=== PATIENT | male | born 1955 | race Caucasian/White ===

== ENCOUNTER 2023-06-30 09:32 | Observation (INO) | payer MEDICARE ==
[2023-06-30] MEDS ORDERED: Ativan 2 MG/1 ML VIAL ONE (09:48)
[2023-06-30] MEDS: Ativan 2 MG/1 ML VIAL IV ONE (09:50)
[2023-06-30 10:03] LABS: Absolute Neutrophil Ct (ANC) 4.83 x10^3/uL (1.4-6.9); BASOPHIL % 0.9 % (0.0-0.4); Basophil (Absolute #) 0.09 x10^3/uL (0-0.4); Eosinophil % 4.8 % (0.00-5.0); Eosinophil (Absolute #) 0.48 x10^3/uL (0-0.5); Hematocrit 43.1 % (42-50); Hemoglobin 14.8 g/dL (12.5-18.0); IMMATURE GRAN # 0.05 x10^3u/L (0.00-0.03); IMMATURE GRAN % 0.5 % (0.00-0.4); Lymphocyte (Absolute #) 3.66 x10^3/uL (1.0-4.6); Lymphocytes % 36.3 % (24.0-44.0); Mean Cell Volume 83.7 fL (78-100); Mean Corpuscular Hemoglobin 28.7 pg (26-32); Mean Corpuscular Hgb Concent. 34.3 g/dL (32-36); Mean Platelet Volume 8.6 fL (7.5-11.0); Monocyte (Absolute #) 0.96 x10^3/uL (0.0-1.3); Monocytes % 9.5 % (0.0-12.0); Platelet Count 282 x10^3/uL (150-450); Red Blood Count 5.15 x10^6/uL (4.1-5.6); Red Cell Distribution Width 12.4 % (11.5-14.0); White Blood Count 10.1 x10^3/uL (4.0-10.5)
[2023-06-30 10:19] LABS: ALBUMIN 4.1 g/dL (3.5-5.0); ANION GAP 14.4 MEQ/L (5-15); BILIRUBIN,TOTAL 0.7 mg/dL (0.2-1.3); Calcium 9.2 mg/dL (8.4-10.2); Creatinine 1 0.98 mg/dL (0.66-1.25); EST GLOMERULAR FILTRATION RATE 83.5 ML/MIN; Potassium 4.1 mmol/L (3.5-5.1); Total Protein 7.4 g/dL (6.3-8.2)
[2023-06-30] MEDS: Ativan 1 MG PO ONE (10:36)
[2023-06-30] MEDS ORDERED: Sodium Chloride 0.9% 1000 ML 1,000 ML ONE (10:38)
--- NOTE | 2023-06-30 11:13 | XRAY ---
CLINICAL HISTORY: syncope TECHNIQUE: An axial CT scan of the cervical spine was performed without IV contrast. Sagittal and coronal reconstructed images were obtained. DLP: 1503.16 mGy-cm, CTDI: 74.61 mGy. COMPARISON: None. FINDINGS: Mild straightening of cervical lordosis. Diffuse bone demineralization. Multilevel osteophytes are seen. Degenerative disc disease is seen at multiple levels, mainly affecting C1-C2, C7-T1 and T1-T2 disc space levels. Uncovertebral hypertrophy is noted at the C5-C6 level more at the right side causing right neuroforaminal stenosis. No acute fracture or vertebral listhesis is seen. The visualized right maxillary, ethmoid and sphenoid sinuses show mild mucosal thickening. The visualized soft tissue structures of the neck are normal. The visualized bilateral lung apices are normal. IMPRESSION: 1. No acute fracture or vertebral listhesis. 2. Mild straightening of cervical lordosis possibly due to muscle spasm. 3. Cervical spondylotic changes. 4. Right C5-C6 uncovertebral hypertrophy causing mild to moderate neuroforaminal stenosis. Electronically Signed by: Kimi Ojeda MD. (06/30/2023 11:08:57 EDT)
[2023-06-30] MEDS: Sodium Chloride 0.9% 1000 ML 1,000 ML IV SCH ×2 (11:16→19:06)
--- NOTE | 2023-06-30 11:19 | XRAY ---
CLINICAL HISTORY: syncope TECHNIQUE: An axial CT scan of the head was performed without IV contrast. Sagittal and coronal reconstructed images were obtained. COMPARISON: None. FINDINGS: Brain parenchyma is normal. No acute vascular territory infarct or intracranial hemorrhage. No intra-axial or extra-axial mass or collection. The ventricular system, cortical sulci and basal cisterns are prominent consistent with senile changes. No hydrocephalus. No brain herniation, midline shift or mass effect. The brainstem is normal. The posterior fossa is normal. No acute calvarial fracture is seen. No scalp hematoma. Bilateral maxillary, ethmoid , sphenoid and frontal sinuses show mucosal thickening. IMPRESSION: 1. No acute intracranial abnormality. 2. Senile brain changes. Electronically Signed by: Kimi Ojeda MD. (06/30/2023 11:16:01 EDT)
--- NOTE | 2023-06-30 11:39 | XRAY ---
CLINICAL HISTORY: syncope/fall/left rib inj TECHNIQUE: An axial CT of the chest was performed without IV contrast. Sagittal and coronal reconstructed images were obtained. DLP: 509.48 mGy, CTDI: 13.33 mGy. COMPARISON: None. FINDINGS: The fissural nodule is seen in the superior segment of right lower lobe measuring 0.5 cm. The atelectatic band is seen in the right middle lobe. The remaining lung pizano are clear. No other worrisome nodule or mass. No consolidation or pulmonary edema. No lung contusion or laceration. No interstitial opacities. No pleural effusions. No enlarged axillary, supraclavicular or mediastinal lymph nodes. The esophagus is nondilated. Non-aneurysmal thoracic aorta. Atherosclerotic coronary artery calcifications. The visualized ribs show no fracture. No acute fracture in the visualized thoracic vertebrae, clavicles scapula or proximal humeral bones No cardiomegaly. Pericardial effusion. Mild hiatal hernia. The visualized upper abdomen shows a 2 cm cyst arising from the right kidney, appearing slightly hyperdense, possibly representing a hemorrhagic cyst. Diffuse fatty atrophy of pancreatic parenchyma. No other concerning findings are seen in the visualized upper abdomen on this nondedicated study. A 0.8 cm nodule is seen in the right lobe of the thyroid gland on this nondedicated study. Further evaluation with ultrasound of the thyroid may be needed if clinically indicated. IMPRESSION: 1. No acute fracture in the visualized bones, the lower 3 ribs in each side is incompletely evaluated (not completely included in the field of view). 2. No acute abnormality in the lungs and mediastinum. 3. Right major fissure subcentemetric nodule, follow-up is advised at 12 months in high-risk patients. 4. 0.8 cm right thyroid lobe nodule may be further evaluated with ultrasound if clinically indicated. 5. Small hiatal hernia. 6. A 2 cm cyst arising from the right kidney appearing slightly hyperdense (complex). Sonographic evaluation is advised. Electronically Signed by: Kimi Ojeda MD. (06/30/2023 11:35:52 EDT)
--- NOTE | 2023-06-30 13:35 | ERPHSYRPT ---
- History of Present Illness Time Seen by Provider: 06/30/23 09:35 Source: patient, family Exam Limitations: no limitations Patient Subjective Stated Complaint: Syncope Triage Nursing Assessment: Patient brought into ED per w/c and transferred to b ed with assist of 1. Patient A+O X 3. Patient's skin pink, warm and dry. Patient states he was up to use the restroom when he had a pain/cramp in left leg and all he remembers is his standing over him. Patient states he has head/neck pain to mid left side of back and left knee 11/15. Patient also complains of headache. Patient has purple bruise to left flank area. Patient's stated she heard a loud boom and she ran to check on patient and he was lying on flat on his back with head on pile of towels. states he was unresponsive when she found him. Physician History: 68-year-old male with history of hypertension, hyperlipidemia, diabetes mellitus presented in the ER with complains of syncopal episode. Patient reports he was urinating while standing, suddenly collapsed. heard the thump and gregg to the bathroom and he woke up immediately. No seizure-like activity or postictal phase observed. Patient hit his left chest wall and is also complaining of some headache. Patient has history of chronic headache and neck pain. Denies any focal numbness tingling or weakness. Denies any visual disturbance. Denies any chest pain palpitations or shortness of breath before or after the collapse. Patient is back to his baseline. Reports he felt cramping in the left leg when he woke up. No difficulty movements of lower extremities. No recent fever or chills reported. Timing/Duration: today Deficits: no difficulties Baseline/Normal Cognition: alert oriented x 3 Current Cognition: alert oriented x 3 Baseline Gait: walks w/o assistance Allergies/Adverse Reactions: No Known Drug Allergies Allergy (Unverified 06/30/23 09:35) Home Medications: Amlodipine Besylate 1 tab PO DAILY 06/30/23 [History] Cholecalciferol (Vitamin D3) [Vitamin D3] 1 tab PO DAILY 06/30/23 [History] Metformin HCl 500 mg [Glucophage 500 MG] 2 tab PO HS 06/30/23 [History] Metoprolol Succinate 100 mg [Toprol Xl 100 MG] 1 tab PO DAILY 06/30/23 [History] Ramipril [Altace] 1 tab PO BID 06/30/23 [History] Rosuvastatin Calcium 1 tab PO HS 06/30/23 [History] Tamsulosin HCl 0.4 mg [Flomax 0.4 MG] 1 tab PO HS 06/30/23 [History] Zinc Gluconate [Zinc] 1 tab PO DAILY 06/30/23 [History] hydroCHLOROthiazide [Hydrochlorothiazide] 1 tab PO DAILY 06/30/23 [History] Hx Influenza Vaccination/Date Given: Yes Hx Pneumococcal Vaccination/Date Given: No Immunizations Up to Date: Yes Travel Risk - International Travel Have you traveled outside of the country in past 3 weeks: No - Emerging Infectious Disease Are you exhibiting symptoms associated with any current EIDs: No - Review of Systems Constitutional: Fatigue Eyes: No Symptoms Ears, Nose, & Throat: No Symptoms Respiratory: No Symptoms Cardiac: No Palpitations, No Orthopnea Abdominal/Gastrointestinal: No Symptoms Genitourinary Symptoms: No Symptoms Musculoskeletal: Back Pain, Neck Pain Neurological: Headache Endocrine: No Symptoms Hematologic/Lymphatic: No Symptoms - Past Medical History Pertinent Past Medical History: Yes Cardiac History: High Cholesterol, Hypertension Endocrine Medical History: Diabetes Type II Musculoskeletal History: No Pertinent History GI Medical History: No Pertinent History History: No Pertinent History Psycho-Social History: Anxiety Male Reproductive Disorders: Prostate Cancer - Past Surgical History Past Surgical History: Yes Neuro Surgical History: No Pertinent History Cardiac: No Pertinent History Respiratory: No Pertinent History Musculoskeletal: Orthopedic Surgery Male Surgical History: Other Other Surgical History: Yeyo knee replacement. prostate problems - Social History Smoking Status: Never smoker Exposure to second hand smoke: No Drug Use: none - Nursing Vital Signs Nursing Vital Signs: Initial Vital Signs Pulse Rate 72 06/30/23 09:35 Respiratory Rate 18 06/30/23 09:35 Blood Pressure 156/85 06/30/23 09:35 O2 Sat by Pulse Oximetry 97 06/30/23 09:35 Pain Scale Pain Intensity 8 - [place] Coma Scale Best Eye Response ([place]): (4) open spontaneously Best Verbal Response ([place]): (5) oriented Best Motor Response ([place]): (6) obeys commands [place] Total: 15 - Physical Exam General Appearance: no apparent distress, alert, anxiety Eye Exam: bilateral eye: normal inspection, PERRL, EOMI Ears, Nose, Throat Exam: normal ENT inspection, TMs normal, pharynx normal, moist mucous membranes Neck Exam: normal inspection, supple, other (Mild tenderness bilaterally in the lower neck. C-collar placed pain.) Respiratory: normal breath sounds, chest tenderness (Bruising left posterior chest wall with minimal tenderness.), lungs clear Cardiovascular: regular rate/rhythm, normal heart sounds Gastrointestinal: soft, normal bowel sounds, No tenderness Back Exam: normal range of motion, rash Extremity Exam: normal inspection, normal range of motion Mental Status: alert, oriented x 3, cooperative director of athletics Exam: normal hearing, normal speech, PERRL Coordination/Gait: normal finger to nose, normal cerebellar function Motor/Sensory: no motor deficit, no sensory deficit, no pronator drift, negative Babinski's sign DTR: bicep (R): 2+, bicep (L): 2+, knee (R): 2+, knee (L): 2+ Skin Exam: normal color SpO2 Interpretation: normal SpO2: 97 O2 Delivery: Room Air - Course EKG Interpreted by Me: RATE (73), Sinus Rhythm, NORMAL AXIS, prolonged QT inte rval, Non-specific ST Changes Ordered Tests: Active Orders 24 hr Category Date Time Status Business Continuity Coordinator STAT Care 06/30/23 09:50 Active EKG-ER Only STAT Care 06/30/23 09:49 Active IV Insertion STAT Care 06/30/23 09:49 Active Orthostatic Vital Signs STAT Care 06/30/23 09:50 Active POCT Glucose Check STAT Care 06/30/23 09:50 Active CERVICAL SPINE WO CONTRAST [CT] Stat Exams 06/30/23 09:49 Completed CHEST WITHOUT CONTRAST [CT] Stat Exams 06/30/23 09:49 Completed HEAD WITHOUT CONTRAST [CT] Stat Exams 06/30/23 09:49 Completed KNEE (3 VIEWS) Stat Exams 06/30/23 11:28 Taken CBC W DIFF Stat Lab 06/30/23 09:50 Completed CK-Creatinine Phosphokinase Stat Lab 06/30/23 09:50 Completed CMP Stat Lab 06/30/23 09:50 Completed NT PRO BNPII Stat Lab 06/30/23 09:50 Completed POCT GLUCOSE Stat Lab 06/30/23 09:48 Completed TROPONIN Q4H Lab 06/30/23 09:50 Completed TROPONIN Q4H Lab 06/30/23 14:00 Received TROPONIN Q4H Lab 06/30/23 18:00 Ordered Medication Summary Generic Name Dose Route Start Last Admin Trade Name Chip PRN Reason Stop Dose Admin Sodium Chloride 1,000 mls @ 125 mls/hr 06/30/23 10:00 06/30/23 11:16 Sodium Chloride 0.9% 1000 Ml IV 07/30/23 09:59 125 mls/hr .Q8H HEBER Administration Discontinued Medications Generic Name Dose Route Start Last Admin Trade Name Chip PRN Reason Stop Dose Admin Lorazepam Confirm 06/30/23 09:48 Lorazepam 2 Mg/1 Ml 2 Mg Vial Administered 06/30/23 09:49 Dose 2 mg .ROUTE .STK-MED ONE Lorazepam 1 mg 06/30/23 09:50 06/30/23 10:36 Lorazepam 1 Mg Tablet PO 06/30/23 09:51 Not Given STAT ONE Lorazepam 1 mg 06/30/23 10:14 06/30/23 09:50 Lorazepam 2 Mg/1 Ml 2 Mg Vial IV 06/30/23 10:15 1 mg STAT ONE Administration Lab/Rad Data: Laboratory Result Diagrams 06/30/23 09:50 06/30/23 09:50 Laboratory Results 06/30/23 06/30/23 06/30/23 Range/Units 09:50 09:50 09:50 WBC (4.0-10.5) x10^3/uL RBC (4.1-5.6) x10^6/uL Hgb (12.5-18.0) g/dL Hct (42-50) % MCV (78-100) fL MCH (26-32) pg MCHC (32-36) g/dL RDW (11.5-14.0) % Plt Count (150-450) x10^3/uL MPV (7.5-11.0) fL Gran % (36.0-66.0) % Immature Gran % (Auto) (0.00-0.4) % Nucleat RBC Rel Count (0.00-0.1) % Eos # (Auto) (0-0.5) x10^3/uL Immature Gran # (Auto) (0.00-0.03) x10^3u/L Absolute Lymphs (auto) (1.0-4.6) x10^3/uL Absolute Monos (auto) (0.0-1.3) x10^3/uL Absolute Nucleated RBC (0.00-0.01) x10^3u/L Lymphocytes % (24.0-44.0) % Monocytes % (0.0-12.0) % Eosinophils % (0.00-5.0) % Basophils % (0.0-0.4) % Absolute Granulocytes (1.4-6.9) x10^3/uL Basophils # (0-0.4) x10^3/uL Sodium 136 (135-145) mmol/L Potassium 4.1 (3.5-5.1) mmol/L Chloride 103 (98-107) mmol/L Carbon Dioxide 23 (22-30) mmol/L Anion Gap 14.4 (5-15) MEQ/L BUN 22 H (9-20) mg/dL Creatinine 0.98 (0.66-1.25) mg/dL Estimated GFR 83.5 ML/MIN Glucose 216 H (74-106) mg/dL POC Glucometer (74 to 106) mg/dL Calcium 9.2 (8.4-10.2) mg/dL Total Bilirubin 0.70 (0.2-1.3) mg/dL AST 24 (17-59) U/L ALT 22 (0-50) U/L Alkaline Phosphatase 89 (38-126) U/L Creatine Kinase 66 (55-170) U/L Troponin I < 0.012 (0.000-0.034) ng/mL NT-Pro-B Natriuret Pep 32.7 (<300) pg/mL Serum Total Protein 7.4 (6.3-8.2) g/dL Albumin 4.1 (3.5-5.0) g/dL 06/30/23 06/30/23 Range/Units 09:50 09:48 WBC 10.1 (4.0-10.5) x10^3/uL RBC 5.15 (4.1-5.6) x10^6/uL Hgb 14.8 (12.5-18.0) g/dL Hct 43.1 (42-50) % MCV 83.7 (78-100) fL MCH 28.7 (26-32) pg MCHC 34.3 (32-36) g/dL RDW 12.4 (11.5-14.0) % Plt Count 282 (150-450) x10^3/uL MPV 8.6 (7.5-11.0) fL Gran % 48.0 (36.0-66.0) % Immature Gran % (Auto) 0.5 H (0.00-0.4) % Nucleat RBC Rel Count 0.0 (0.00-0.1) % Eos # (Auto) 0.48 (0-0.5) x10^3/uL Immature Gran # (Auto) 0.05 H (0.00-0.03) x10^3u/L Absolute Lymphs (auto) 3.66 (1.0-4.6) x10^3/uL Absolute Monos (auto) 0.96 (0.0-1.3) x10^3/uL Absolute Nucleated RBC 0.00 (0.00-0.01) x10^3u/L Lymphocytes % 36.3 (24.0-44.0) % Monocytes % 9.5 (0.0-12.0) % Eosinophils % 4.8 (0.00-5.0) % Basophils % 0.9 (0.0-0.4) % Absolute Granulocytes 4.83 (1.4-6.9) x10^3/uL Basophils # 0.09 (0-0.4) x10^3/uL Sodium (135-145) mmol/L Potassium (3.5-5.1) mmol/L Chloride (98-107) mmol/L Carbon Dioxide (22-30) mmol/L Anion Gap (5-15) MEQ/L BUN (9-20) mg/dL Creatinine (0.66-1.25) mg/dL Estimated GFR ML/MIN Glucose (74-106) mg/dL POC Glucometer 208 H (74 to 106) mg/dL Calcium (8.4-10.2) mg/dL Total Bilirubin (0.2-1.3) mg/dL AST (17-59) U/L ALT (0-50) U/L Alkaline Phosphatase (38-126) U/L Creatine Kinase (55-170) U/L Troponin I (0.000-0.034) ng/mL NT-Pro-B Natriuret Pep (<300) pg/mL Serum Total Protein (6.3-8.2) g/dL Albumin (3.5-5.0) g/dL - Progress Progress: improved Progress Note: 06/30/23 14:10 68-year-old is evaluated in the ER for syncopal episode. Patient has no seizure-like activity noticed. At his baseline on presentation. EKG is sinus rhythm with no acute ischemic changes. Negative troponins. Placed in c-collar. CT head and cervical spine are negative for any acute findings. Patient CT chest is negative for acute intrathoracic process. Workup showed white count of 10, fairly unremarkable chemistries. Started on gentle hydration. Do not know the exact cause of his syncopal episode, possible micturition syncope but needs further workup. Discussed with Dr. Bryant, reviewed history, workup and agreed with observation admission. I have discussed the results of workup with patient and family and plan of admission which they understand and agree with it. 06/30/23 14:[address].: Other (Dr. Bryant hospitalist 1400) Will see patient in: hospital (observation) Counseled pt/family regarding: lab results, diagnosis, rad results Medical Desision Making - Discussion of managment Care discussed with:: hospitalist Reviewed:: Test results Agreed on:: Treatment plan, place in obs Will see patient: in hospital - Diagnostic Testing Diagnostic test were ordered, analyzed, and reviewed by me: Yes Radiological Interpretation: Reviewed by me, Teleradiologist Report - Risk of complications The pt has a high risk of morbidity or mortality based on: Decision regarding hospitilization or escalation of hosp level of care - Departure Departure Disposition: Observation Clinical Impression: Syncope and collapse Condition: Stable Critical Care Time: No Referrals: HANNA GUZMAN DO [Primary Care Provider] - Follow up/PCP as directed
--- NOTE | 2023-06-30 14:50 | PCM.HP ---
<MALINDA COLÓN - Last Filed: 06/30/23 15:36> History of Present Illness - Chief Complaint Chief Complaint: Syncope and collapse Date: 06/30/23 History of Present Illness: is a 68 year old male with a pmhx of HTN, DMII, HLD, anxiety, and prostate cancer who presented to ED 06/30/23 following a syncopal episode while urinating. Patient reports that he had a pretty bad "chrystal horse" while walking to the bathroom, and when he went to urinate he "felt funny" with associated nausea and the next thing he knew he was on the floor. His spouse is present during interview and states she heard a crash and went to investigate and found him on the floor. The patient did recover in less than 5 seconds. No seizure-like activity or postictal phase observed. Patient hit his left chest wall, left knee, and endorses some headache. He denies any focal numbness tingling or weakness. Denies any chest pain, dizziness, visual changes, palpitations or shortness of breath before or after the collapse. Patient is back to his baseline during this interview. He does report occasional episodes of dizziness with positional changes. He is on multiple medications for HTN. In ED, patient was mildly hypertensive, otherwise vitals were stable. EKG is sinus rhythm with no ST elevations/deviations, acute ischemic changes. CT head and cervical spine are negative for any acute findings. Patient CT chest is negative for acute intrathoracic process. Of note, there is a right major fissure subcentemetric nodule with advisement for follow up in 12 months. Laboratory findings unremarkable. Patient given fluids in ED. Admission for evaluation of syncopal episode. - Review of Systems Constitutional: No Symptoms Eyes: No Symptoms Ears, Nose, & Throat: No Symptoms Respiratory: No Symptoms Cardiac: No Symptoms Abdominal/Gastrointestinal: No Symptoms Genitourinary Symptoms: No Symptoms Musculoskeletal: Neck Pain (chronic), Joint Pain (left knee) Skin: No Symptoms Neurological: Headache Psychological: No Symptoms Endocrine: No Symptoms Hematologic/Lymphatic: No Symptoms Immunological/Allergic: No Symptoms Medications & Allergies Home Medications: Home Medication List Amlodipine Besylate 1 tab PO DAILY 06/30/23 [History Confirmed 06/30/23] Cholecalciferol (Vitamin D3) [Vitamin D3] 1 tab PO DAILY 06/30/23 [History Confirmed 06/30/23] Metformin HCl 500 mg [Glucophage 500 MG] 2 tab PO HS 06/30/23 [History Confirmed 06/30/23] Metoprolol Succinate [Toprol Xl] 1 tab PO DAILY 06/30/23 [History Confirmed 06/30/23] Ramipril [Altace] 1 tab PO BID 06/30/23 [History Confirmed 06/30/23] Rosuvastatin Calcium 1 tab PO HS 06/30/23 [History Confirmed 06/30/23] Tamsulosin HCl 0.4 mg [Flomax 0.4 MG] 1 tab PO HS 06/30/23 [History Confirmed 06/30/23] Zinc Gluconate [Zinc] 1 tab PO DAILY 06/30/23 [History Confirmed 06/30/23] hydroCHLOROthiazide [Hydrochlorothiazide] 1 tab PO DAILY 06/30/23 [History Confirmed 06/30/23] Allergies/Adverse Reactions: Allergies Allergy/AdvReac Type Severity Reaction Status Date / Time No Known Drug Allergies Allergy Unverified 06/30/23 09:35 - Past Medical History Past Medical History: Yes Cardiac History: High Cholesterol, Hypertension Endocrine Medical History: Diabetes Type II Musculoskelatal History: No Pertinent History GI Medical History: No Pertinent History History: No Pertinent History Pyscho-Social History: Anxiety Male Reproductive Disorders: Prostate Cancer - Past Surgical History Past Surgical History: Yes Neuro Surgical History: No Pertinent History Cardiac History: No Pertinent History Respiratory Surgery: No Pertinent History Musculskeletal Surgical Hx: Orthopedic Surgery Male Surgical History: Other Other Surgical History: Yeyo knee replacement. prostate problems - Social History Smoking Status: Never smoker Exposure to second hand smoke: No Alcohol: Occasionally Drug Use: none - Social Determinants of Health Will the patient participate in the screening: Yes Do you worry about a steady place to live?: No Do you have any problems with any of the following?: No known problems In the past 12 months,have you had to go without utilities?: No Have you or anyone in your house had to go without enough: No Transportation Issues: No Has anyone in your support network made you feel unsafe?: No - Physical Exam Vital Signs: Vital Signs - 24 hr Pulse Resp BP Pulse Ox 06/30/23 14:13 97 03/24/24 09:35 72 18 156/85 97 General Appearance: no apparent distress Neurologic Exam: alert, oriented x 3, cooperative Eye Exam: PERRL/EOMI Ears, Nose, Throat Exam: normal ENT inspection Neck Exam: normal inspection Respiratory Exam: normal breath sounds, lungs clear Cardiovascular Exam: regular rate/rhythm, normal heart sounds Rectal Exam: deferred Back Exam: normal inspection Extremity Exam: normal inspection Skin Exam: normal color Results - Labs Lab/Micro Results: Lab Results-Last 24 Hours 06/30/23 06/30/23 06/30/23 Range/Units 09:48 09:50 09:50 WBC 10.1 (4.0-10.5) x10^3/uL RBC 5.15 (4.1-5.6) x10^6/uL Hgb 14.8 (12.5-18.0) g/dL Hct 43.1 (42-50) % MCV 83.7 (78-100) fL MCH 28.7 (26-32) pg MCHC 34.3 (32-36) g/dL RDW 12.4 (11.5-14.0) % Plt Count 282 (150-450) x10^3/uL MPV 8.6 (7.5-11.0) fL Gran % 48.0 (36.0-66.0) % Immature Gran % (Auto) 0.5 H (0.00-0.4) % Nucleat RBC Rel Count 0.0 (0.00-0.1) % Eos # (Auto) 0.48 (0-0.5) x10^3/uL Immature Gran # (Auto) 0.05 H (0.00-0.03) x10^3u/L Absolute Lymphs (auto) 3.66 (1.0-4.6) x10^3/uL Absolute Monos (auto) 0.96 (0.0-1.3) x10^3/uL Absolute Nucleated RBC 0.00 (0.00-0.01) x10^3u/L Lymphocytes % 36.3 (24.0-44.0) % Monocytes % 9.5 (0.0-12.0) % Eosinophils % 4.8 (0.00-5.0) % Basophils % 0.9 (0.0-0.4) % Absolute Granulocytes 4.83 (1.4-6.9) x10^3/uL Basophils # 0.09 (0-0.4) x10^3/uL Sodium 136 (135-145) mmol/L Potassium 4.1 (3.5-5.1) mmol/L Chloride 103 (98-107) mmol/L Carbon Dioxide 23 (22-30) mmol/L Anion Gap 14.4 (5-15) MEQ/L BUN 22 H (9-20) mg/dL Creatinine 0.98 (0.66-1.25) mg/dL Estimated GFR 83.5 ML/MIN Glucose 216 H (74-106) mg/dL POC Glucometer 208 H (74 to 106) mg/dL Calcium 9.2 (8.4-10.2) mg/dL Total Bilirubin 0.70 (0.2-1.3) mg/dL AST 24 (17-59) U/L ALT 22 (0-50) U/L Alkaline Phosphatase 89 (38-126) U/L Creatine Kinase 66 (55-170) U/L Troponin I (0.000-0.034) ng/mL NT-Pro-B Natriuret Pep (<300) pg/mL Serum Total Protein 7.4 (6.3-8.2) g/dL Albumin 4.1 (3.5-5.0) g/dL 06/30/23 06/30/23 06/30/23 Range/Units 09:50 09:50 14:00 WBC (4.0-10.5) x10^3/uL RBC (4.1-5.6) x10^6/uL Hgb (12.5-18.0) g/dL Hct (42-50) % MCV (78-100) fL MCH (26-32) pg MCHC (32-36) g/dL RDW (11.5-14.0) % Plt Count (150-450) x10^3/uL MPV (7.5-11.0) fL Gran % (36.0-66.0) % Immature Gran % (Auto) (0.00-0.4) % Nucleat RBC Rel Count (0.00-0.1) % Eos # (Auto) (0-0.5) x10^3/uL Immature Gran # (Auto) (0.00-0.03) x10^3u/L Absolute Lymphs (auto) (1.0-4.6) x10^3/uL Absolute Monos (auto) (0.0-1.3) x10^3/uL Absolute Nucleated RBC (0.00-0.01) x10^3u/L Lymphocytes % (24.0-44.0) % Monocytes % (0.0-12.0) % Eosinophils % (0.00-5.0) % Basophils % (0.0-0.4) % Absolute Granulocytes (1.4-6.9) x10^3/uL Basophils # (0-0.4) x10^3/uL Sodium (135-145) mmol/L Potassium (3.5-5.1) mmol/L Chloride (98-107) mmol/L Carbon Dioxide (22-30) mmol/L Anion Gap (5-15) MEQ/L BUN (9-20) mg/dL Creatinine (0.66-1.25) mg/dL Estimated GFR ML/MIN Glucose (74-106) mg/dL POC Glucometer (74 to 106) mg/dL Calcium (8.4-10.2) mg/dL Total Bilirubin (0.2-1.3) mg/dL AST (17-59) U/L ALT (0-50) U/L Alkaline Phosphatase (38-126) U/L Creatine Kinase (55-170) U/L Troponin I < 0.012 < 0.012 (0.000-0.034) ng/mL NT-Pro-B Natriuret Pep 32.7 (<300) pg/mL Serum Total Protein (6.3-8.2) g/dL Albumin (3.5-5.0) g/dL Accuchecks Date 06/30/23 Date 06/30/23 Time 10:01 Time 09:48 - Radiology Impressions Radiology Exams & Impressions: Radiology Procedures Category Date Time Status CERVICAL SPINE WO CONTRAST [CT] Stat Exams 06/30/23 09:49 Completed CHEST WITHOUT CONTRAST [CT] Stat Exams 06/30/23 09:49 Completed HEAD WITHOUT CONTRAST [CT] Stat Exams 06/30/23 09:49 Completed KNEE (3 VIEWS) Stat Exams 06/30/23 11:28 Taken Assessment/Plan (1) Syncope and collapse Current Visit: Yes Status: Acute Assessment & Plan: -?micturition syncope -Medications reviewed, on multiple BP meds, will monitor HR on Tele, Hold HCTZ for now -gentle hydration started in ED will continue -UA, CBC, CMP -CT head/thoracic spine with no acute findings -Echo/carotid -Orthostatic vitals -med review -PT/OT consult Code(s): R55 - SYNCOPE AND COLLAPSE (2) Diabetes mellitus Current Visit: Yes Status: Acute Assessment & Plan: -SSI -Hold metformin -ADA diet -A1c -accuchecks ACHS Code(s): E11.9 - TYPE 2 DIABETES MELLITUS WITHOUT COMPLICATIONS (3) Hypertension Current Visit: Yes Status: Acute Assessment & Plan: -Stable, will hold HCTZ for now, continue other home meds Code(s): I10 - ESSENTIAL (PRIMARY) HYPERTENSION (4) Hyperlipidemia Current Visit: Yes Status: Acute Assessment & Plan: -continue statin Code(s): E78.5 - HYPERLIPIDEMIA, UNSPECIFIED (5) Left knee pain Current Visit: Yes Status: Acute Assessment & Plan: -Secondary to fall after syncopal episode -Left knee xray pending -Pain control Code(s): M25.562 - PAIN IN LEFT KNEE <CANDELARIO RODRIGUEZ - Last Filed: 06/30/23 17:55> History of Present Illness - Chief Complaint History of Present Illness: is a 68 year old male. - Physical Exam Vital Signs: Vital Signs - 24 hr Temp Pulse Resp BP BP Pulse Ox 06/30/23 17:16 95 06/30/23 16:00 98.6 F 89 23 154/87 95 06/30/23 15:00 92 L 06/30/23 14:18 97.3 F 92 H 16 174/80 93 L 06/30/23 14:13 97 06/30/23 09:35 72 18 156/85 97 Results - Labs Lab/Micro Results: Lab Results-Last 24 Hours 06/30/23 06/30/23 06/30/23 Range/Units 09:48 09:50 09:50 WBC 10.1 (4.0-10.5) x10^3/uL RBC 5.15 (4.1-5.6) x10^6/uL Hgb 14.8 (12.5-18.0) g/dL Hct 43.1 (42-50) % MCV 83.7 (78-100) fL MCH 28.7 (26-32) pg MCHC 34.3 (32-36) g/dL RDW 12.4 (11.5-14.0) % Plt Count 282 (150-450) x10^3/uL MPV 8.6 (7.5-11.0) fL Gran % 48.0 (36.0-66.0) % Immature Gran % (Auto) 0.5 H (0.00-0.4) % Nucleat RBC Rel Count 0.0 (0.00-0.1) % Eos # (Auto) 0.48 (0-0.5) x10^3/uL Immature Gran # (Auto) 0.05 H (0.00-0.03) x10^3u/L Absolute Lymphs (auto) 3.66 (1.0-4.6) x10^3/uL Absolute Monos (auto) 0.96 (0.0-1.3) x10^3/uL Absolute Nucleated RBC 0.00 (0.00-0.01) x10^3u/L Lymphocytes % 36.3 (24.0-44.0) % Monocytes % 9.5 (0.0-12.0) % Eosinophils % 4.8 (0.00-5.0) % Basophils % 0.9 (0.0-0.4) % Absolute Granulocytes 4.83 (1.4-6.9) x10^3/uL Basophils # 0.09 (0-0.4) x10^3/uL Sodium 136 (135-145) mmol/L Potassium 4.1 (3.5-5.1) mmol/L Chloride 103 (98-107) mmol/L Carbon Dioxide 23 (22-30) mmol/L Anion Gap 14.4 (5-15) MEQ/L BUN 22 H (9-20) mg/dL Creatinine 0.98 (0.66-1.25) mg/dL Estimated GFR 83.5 ML/MIN Glucose 216 H (74-106) mg/dL POC Glucometer 208 H (74 to 106) mg/dL Calcium 9.2 (8.4-10.2) mg/dL Total Bilirubin 0.70 (0.2-1.3) mg/dL AST 24 (17-59) U/L ALT 22 (0-50) U/L Alkaline Phosphatase 89 (38-126) U/L Creatine Kinase 66 (55-170) U/L Troponin I (0.000-0.034) ng/mL NT-Pro-B Natriuret Pep (<300) pg/mL Serum Total Protein 7.4 (6.3-8.2) g/dL Albumin 4.1 (3.5-5.0) g/dL TSH 3rd Generation (0.47-4.68) mIU/L Urine Color (Yellow) Urine Appearance (Clear) Urine pH (4.6-8.0) Ur Specific [place] (1.005-1.030) Urine Protein (Negative) Urine Glucose (UA) (Negative) mg/dL Urine Ketones (Negative) Urine Blood (Negative) Urine Nitrite (Negative) Urine Bilirubin (Negative) Urine Urobilinogen (0.2) mg/dL Ur Leukocyte Esterase (Negative) U Hyaline Cast (Auto) (0-2) /LPF Urine Microscopic RBC (0-5) /HPF Urine Microscopic WBC (0-5) /HPF Ur Epithelial Cells (None Seen) /HPF Urine Bacteria (None Seen) /HPF Urine Culture Reflexed (NO) 06/30/23 06/30/23 06/30/23 Range/Units 09:50 09:50 14:00 WBC (4.0-10.5) x10^3/uL RBC (4.1-5.6) x10^6/uL Hgb (12.5-18.0) g/dL Hct (42-50) % MCV (78-100) fL MCH (26-32) pg MCHC (32-36) g/dL RDW (11.5-14.0) % Plt Count (150-450) x10^3/uL MPV (7.5-11.0) fL Gran % (36.0-66.0) % Immature Gran % (Auto) (0.00-0.4) % Nucleat RBC Rel Count (0.00-0.1) % Eos # (Auto) (0-0.5) x10^3/uL Immature Gran # (Auto) (0.00-0.03) x10^3u/L Absolute Lymphs (auto) (1.0-4.6) x10^3/uL Absolute Monos (auto) (0.0-1.3) x10^3/uL Absolute Nucleated RBC (0.00-0.01) x10^3u/L Lymphocytes % (24.0-44.0) % Monocytes % (0.0-12.0) % Eosinophils % (0.00-5.0) % Basophils % (0.0-0.4) % Absolute Granulocytes (1.4-6.9) x10^3/uL Basophils # (0-0.4) x10^3/uL Sodium (135-145) mmol/L Potassium (3.5-5.1) mmol/L Chloride (98-107) mmol/L Carbon Dioxide (22-30) mmol/L Anion Gap (5-15) MEQ/L BUN (9-20) mg/dL Creatinine (0.66-1.25) mg/dL Estimated GFR ML/MIN Glucose (74-106) mg/dL POC Glucometer (74 to 106) mg/dL Calcium (8.4-10.2) mg/dL Total Bilirubin (0.2-1.3) mg/dL AST (17-59) U/L ALT (0-50) U/L Alkaline Phosphatase (38-126) U/L Creatine Kinase (55-170) U/L Troponin I < 0.012 < 0.012 (0.000-0.034) ng/mL NT-Pro-B Natriuret Pep 32.7 (<300) pg/mL Serum Total Protein (6.3-8.2) g/dL Albumin (3.5-5.0) g/dL TSH 3rd Generation (0.47-4.68) mIU/L Urine Color (Yellow) Urine Appearance (Clear) Urine pH (4.6-8.0) Ur Specific [place] (1.005-1.030) Urine Protein (Negative) Urine Glucose (UA) (Negative) mg/dL Urine Ketones (Negative) Urine Blood (Negative) Urine Nitrite (Negative) Urine Bilirubin (Negative) Urine Urobilinogen (0.2) mg/dL Ur Leukocyte Esterase (Negative) U Hyaline Cast (Auto) (0-2) /LPF Urine Microscopic RBC (0-5) /HPF Urine Microscopic WBC (0-5) /HPF Ur Epithelial Cells (None Seen) /HPF Urine Bacteria (None Seen) /HPF Urine Culture Reflexed (NO) 06/30/23 06/30/23 06/30/23 Range/Units 14:00 15:58 16:50 WBC (4.0-10.5) x10^3/uL RBC (4.1-5.6) x10^6/uL Hgb (12.5-18.0) g/dL Hct (42-50) % MCV (78-100) fL MCH (26-32) pg MCHC (32-36) g/dL RDW (11.5-14.0) % Plt Count (150-450) x10^3/uL MPV (7.5-11.0) fL Gran % (36.0-66.0) % Immature Gran % (Auto) (0.00-0.4) % Nucleat RBC Rel Count (0.00-0.1) % Eos # (Auto) (0-0.5) x10^3/uL Immature Gran # (Auto) (0.00-0.03) x10^3u/L Absolute Lymphs (auto) (1.0-4.6) x10^3/uL Absolute Monos (auto) (0.0-1.3) x10^3/uL Absolute Nucleated RBC (0.00-0.01) x10^3u/L Lymphocytes % (24.0-44.0) % Monocytes % (0.0-12.0) % Eosinophils % (0.00-5.0) % Basophils % (0.0-0.4) % Absolute Granulocytes (1.4-6.9) x10^3/uL Basophils # (0-0.4) x10^3/uL Sodium (135-145) mmol/L Potassium (3.5-5.1) mmol/L Chloride (98-107) mmol/L Carbon Dioxide (22-30) mmol/L Anion Gap (5-15) MEQ/L BUN (9-20) mg/dL Creatinine (0.66-1.25) mg/dL Estimated GFR ML/MIN Glucose (74-106) mg/dL POC Glucometer 229 H (74 to 106) mg/dL Calcium (8.4-10.2) mg/dL Total Bilirubin (0.2-1.3) mg/dL AST (17-59) U/L ALT (0-50) U/L Alkaline Phosphatase (38-126) U/L Creatine Kinase (55-170) U/L Troponin I (0.000-0.034) ng/mL NT-Pro-B Natriuret Pep (<300) pg/mL Serum Total Protein (6.3-8.2) g/dL Albumin (3.5-5.0) g/dL TSH 3rd Generation 1.030 (0.47-4.68) mIU/L Urine Color Yellow (Yellow) Urine Appearance Clear (Clear) Urine pH 6.5 (4.6-8.0) Ur Specific [place] 1.015 (1.005-1.030) Urine Protein Negative (Negative) Urine Glucose (UA) 500 A (Negative) mg/dL Urine Ketones Negative (Negative) Urine Blood Negative (Negative) Urine Nitrite Negative (Negative) Urine Bilirubin Negative (Negative) Urine Urobilinogen 1.0 A (0.2) mg/dL Ur Leukocyte Esterase Negative (Negative) U Hyaline Cast (Auto) NONE SEEN (0-2) /LPF Urine Microscopic RBC 0-2 (0-5) /HPF Urine Microscopic WBC 0-2 (0-5) /HPF Ur Epithelial Cells None Seen (None Seen) /HPF Urine Bacteria None Seen (None Seen) /HPF Urine Culture Reflexed NO (NO) Accuchecks Date 06/30/23 Date 06/30/23 Date 06/30/23 Time 17:28 Time 10:01 Time 09:48 - Radiology Impressions Radiology Exams & Impressions: Radiology Procedures Category Date Time Status CAROTID BILATERAL [US] Routine Exams 07/01/23 08:00 Ordered CERVICAL SPINE WO CONTRAST [CT] Stat Exams 06/30/23 09:49 Completed CHEST WITHOUT CONTRAST [CT] Stat Exams 06/30/23 09:49 Completed ECHO W/2D AND DOPPLER [US] Routine Exams 07/01/23 08:00 Ordered HEAD WITHOUT CONTRAST [CT] Stat Exams 06/30/23 09:49 Completed KNEE (3 VIEWS) Stat Exams 06/30/23 11:28 Taken WRIST (MIN 3 VIEWS) Urgent Exams 06/30/23 17:09 Ordered - Other Procedures and Tests Respiratory Therapy 06/30/23 15:00 EKG REPEAT IN AM ANA LILIA Encounter - ANA LILIA Encounter Attestation ANA LILIA Encounter Attestation: "IhwespersonallysshaqandexaminedNANETA KISER anddadaiscussed pertinent aspects of their care with Malinda Gracie agree with the history, physical exam (any modifications based on my personal exam will be noted below), assessment, and plan as outlined in original note. Please see immediately below for my summary of findings and additional assessment and plan along with any meaningful corrections/explanations to the Subjective/Objective portions of the ANA LILIA note will be noted." My portion of the encounter took place via telemedicine. -Based on patient's account, it was likely a vasovagal event triggered by a severe leg cramp. However given his risk factors, it is reasonable to monitor him on telemetry and check echo and carotid doppler as patient denies having those, at least recently. Also complaining of left knee pain since fall/syncope, unable to bear weight due to pain. Knee x ray pending.
[2023-06-30] MEDS ORDERED: Zofran 4 MG/2 ML VIAL IV PRN (15:00)
[2023-06-30 16:07] LABS: Appearance Clear (Clear); Bacteria None Seen /HPF (None Seen); Bilirubin Negative (Negative); Blood Negative (Negative); Epithelial Cells None Seen /HPF (None Seen); Glucose, Urine 500 mg/dL (Negative); Hyaline Casts NONE SEEN /LPF (0-2); Ketones Negative (Negative); Leukocyte Esterase Negative (Negative); Nitrite Negative (Negative); Ph 6.5 (4.6-8.0); Protein,Urine Dip Negative (Negative); RBC 0-2 /HPF (0-5); Specific Gravity 1.015 (1.005-1.030); WBC 0-2 /HPF (0-5)
[2023-06-30 16:08] LABS: ADD URINE CULTURE? NO (NO)
--- NOTE | 2023-06-30 19:05 | XRAY ---
Indication: Pain following fall. Comparison: None 3 view left knee demonstrates osteopenia and total knee arthroplasty with intact prosthesis and tiny heterotopic ossifications. Minimal posterior vascular calcifications. No other bony, articular, or soft tissue abnormalities.
--- NOTE | 2023-06-30 19:09 | XRAY ---
Indication: Pain following fall. Comparison: None 3 view right wrist demonstrates osteopenia, moderate/advanced 1st metacarpal multangular scaphoid degenerative changes with tiny heterotopic ossifications, and radiocarpal joint space narrowing. No other bony, articular, or soft tissue abnormalities.
[2023-06-30] MEDS: TYLENOL 325 MG PO PRN (19:51)
[2023-06-30] MEDS ORDERED: ZOCOR 20MG ONE (21:05)
[2023-06-30] MEDS ORDERED: Flomax 0.4 MG PO SCH (22:00)
[2023-06-30] MEDS ORDERED: NON-FORMULARY ITEM (Rosuvastatin Calcium [Rosuvastatin Calcium] 20 MG Tablet) PO SCH (22:00)
[2023-06-30] MEDS: NON-FORMULARY ITEM (Ramipril [Altace] 10 MG Capsule) PO SCH (22:02)
[2023-06-30] MEDS: ZOCOR 20MG PO SCH (22:04)
[2023-06-30] MEDS: Zestril 20 MG PO SCH (22:04)
[2023-06-30] MEDS: HUMALOG SQ PRN (22:05)
[2023-07-01 05:15] LABS: Hematocrit 40.7 % (42-50); Hemoglobin 13.4 g/dL (12.5-18.0); Mean Cell Volume 85.5 fL (78-100); Mean Corpuscular Hemoglobin 28.2 pg (26-32); Mean Corpuscular Hgb Concent. 32.9 g/dL (32-36); Mean Platelet Volume 8.5 fL (7.5-11.0); Platelet Count 268 x10^3/uL (150-450); Red Blood Count 4.76 x10^6/uL (4.1-5.6); Red Cell Distribution Width 12.6 % (11.5-14.0); White Blood Count 9.2 x10^3/uL (4.0-10.5)
[2023-07-01 05:29] LABS: ALBUMIN 3.5 g/dL (3.5-5.0); ALKALINE PHOSPHATASE 78 U/L (38-126); ANION GAP 10.5 MEQ/L (5-15); BLOOD UREA NITROGEN 16 mg/dL (9-20); CHLORIDE 107 mmol/L (98-107); Calcium 8.4 mg/dL (8.4-10.2); Carbon Dioxide 23 mmol/L (22-30); Cholesterol 87 mg/dL (50-200); Creatinine 1 0.83 mg/dL (0.66-1.25); EST GLOMERULAR FILTRATION RATE 94.7 ML/MIN; Glucose 188 mg/dL (74-106); HDL CHOLESTEROL 34 mg/dL (40-60); SGOT/AST 21 U/L (17-59); SGPT/ALT 19 U/L (0-50); SODIUM 137 mmol/L (135-145); TRIGLYCERIDE 114 mg/dL (30-150); Total Protein 6.5 g/dL (6.3-8.2)
[2023-07-01] MEDS: Zinc Gluconate 50 MG PO SCH (09:48)
[2023-07-01] MEDS: Toprol Xl 100 MG PO SCH (09:48)
[2023-07-01] MEDS: NORVASC 5 MG PO SCH (09:48)
[2023-07-01] MEDS: VITAMIN D PO SCH (09:48)
[2023-07-01] MEDS ORDERED: VITAMIN D PO SCH (10:00)
[2023-07-01] MEDS ORDERED: NON-FORMULARY ITEM (Amlodipine Besylate [Amlodipine Besylate] 10 MG Tablet) PO SCH (10:00)
[2023-07-01 11:31] VITALS: BP 148/77; PULSE 66; TEMP 97.4; O2SAT 97
[2023-07-01 12:11] VITALS: RESP 23
--- NOTE | 2023-07-01 12:21 | XRAY ---
Indication: Syncope. Two-dimensional sonogram and color Doppler imaging carotid arteries of the neck performed. Comparison: None Examination right carotid circulation demonstrates minimal eccentric calcified plaquing carotid bulb extending into the origin/proximal internal carotid and external carotid arteries. Widely patent common carotid artery. PSV CCA is 72 cm/s. PSV ICA is 100 cm/s. ICA/CCA ratio is 1.4. Normal antegrade vertebral artery flow. Examination left carotid circulation widely patent common carotid artery with distal tortuosity. Minimal heterogeneous plaquing carotid bulb extending into origin/proximal internal carotid artery. Widely patent external carotid artery. PSV CCA is 94 cm/s. PSV ICA is 108 cm/s. ICA/CCA ratio is 1.1. Normal antegrade vertebral artery flow. Impression: Minimal arteriosclerotic plaquing bilaterally as detailed. Velocity measurements and ratios negative for hemodynamically significant flow-limiting stenosis.
--- NOTE | 2023-07-01 13:51 | XRAY ---
Indication: Right renal nodule on recent CT chest. Two-dimensional renal sonogram performed. Comparison: None Both kidneys are normal reniform shape and demonstrates normal color perfusion. Right kidney measures 11.6 x 6.1 x 5.47 m and left measures 10.2 x 5.7 x 5.8 cm. Right mid kidney demonstrates 1.8 x 1.9 x 1.9 cm exophytic cyst. No other focal solid/cystic renal mass or hydronephrosis. Corticomedullary differentiation preserved. Normally distended urinary bladder is grossly unremarkable. Normal left ureteral jet. Right ureteral jet not seen within the allotted exam time. Prevoid bladder volume is 131 cc. Postvoid is 43 cc. Impression: Right renal cyst corresponding to CT finding. Urinary bladder postvoid residual. Remaining renal sonogram is negative.
--- NOTE | 2023-07-01 14:29 | PCM.DS ---
Discharge Summary Date of Admission: 06/30/23 14:16 Date of Discharge: 07/01/23 Admitting Physician: CANDELARIO RODRIGUEZ MD Primary Care Provider: HANNA GUZMAN DO Allergies Allergies No Known Drug Allergies Allergy (Unverified 06/30/23 09:35) Hospital Summary - Hospital Course Hospital Course: is a 68 year old male with a pmhx of HTN, DMII, HLD, anxiety, with elevated PSA. He presented to ED 06/30/23 following a syncopal episode while urinating. Patient reports that he had a pretty bad "chrystal horse" while walking to the bathroom, and when he went to urinate he "felt funny" with associated nausea and the next thing he knew he was on the floor. His spouse is present during interview and states she heard a crash and went to investigate and found him on the floor. The patient did recover in less than 5 seconds. No seizure-like activity or postictal phase observed. Patient hit his left chest wall, left knee, and endorses some headache. He denies any focal numbness tingling or weakness. Denies any chest pain, dizziness, visual changes, palpitations or shortness of breath before or after the collapse. Patient is back to his baseline during this interview. He does report occasional episodes of dizziness with positional changes. He is on multiple medications for HTN. In ED, patient was mildly hypertensive, otherwise vitals were stable. EKG is sinus rhythm with no ST elevations/deviations, acute ischemic changes. CT head and cervical spine are negative for any acute findings. Patient CT chest is negative for acute intrathoracic process. Of note, there is a right major fissure subcentemetric nodule with advisement for follow up in 12 months. Laboratory findings unremarkable. Patient given fluids in ED. Pt is feeling better today and walked well with PT w/o any concerns. Dsicussed CT, echo, carotid US, and kidney US findings. He erik lneed OP f/u and appointments made. He denies CP, SOB, abd. pain, N/V/D. . - Vitals & Intake/Output Vital Signs: Vital Signs Temperature 97.4 F 07/01/23 11:30 Pulse Rate 66 07/01/23 11:30 Respiratory Rate 23 07/01/23 12:00 Blood Pressure 148/77 07/01/23 11:30 O2 Sat by Pulse Oximetry 97 07/01/23 11:30 Intake & Output: Intake & Output 06/29/23 06/30/23 07/01/23 07/02/23 11:59 11:59 11:59 11:59 Intake Total 2662 450 Output Total 725 Balance 1937 450 Weight 106.5 kg 107.6 kg - Lab Result Diagrams: 07/01/23 05:00 07/01/23 05:00 Lab Results-Last 24 Hrs: Lab Results-Last 24 Hours 06/30/23 06/30/23 06/30/23 Range/Units 14:00 14:00 15:58 WBC (4.0-10.5) x10^3/uL RBC (4.1-5.6) x10^6/uL Hgb (12.5-18.0) g/dL Hct (42-50) % MCV (78-100) fL MCH (26-32) pg MCHC (32-36) g/dL RDW (11.5-14.0) % Plt Count (150-450) x10^3/uL MPV (7.5-11.0) fL Sodium (135-145) mmol/L Potassium (3.5-5.1) mmol/L Chloride (98-107) mmol/L Carbon Dioxide (22-30) mmol/L Anion Gap (5-15) MEQ/L BUN (9-20) mg/dL Creatinine (0.66-1.25) mg/dL Estimated GFR ML/MIN Glucose (74-106) mg/dL POC Glucometer (74 to 106) mg/dL Calcium (8.4-10.2) mg/dL Total Bilirubin (0.2-1.3) mg/dL AST (17-59) U/L ALT (0-50) U/L Alkaline Phosphatase (38-126) U/L Troponin I < 0.012 (0.000-0.034) ng/mL Serum Total Protein (6.3-8.2) g/dL Albumin (3.5-5.0) g/dL Triglycerides (30-150) mg/dL Cholesterol (50-200) mg/dL LDL Cholesterol HDL Cholesterol (40-60) mg/dL Heart Disease Risk Ratio TSH 3rd Generation 1.030 (0.47-4.68) mIU/L Urine Color Yellow (Yellow) Urine Appearance Clear (Clear) Urine pH 6.5 (4.6-8.0) Ur Specific Barry 1.015 (1.005-1.030) Urine Protein Negative (Negative) Urine Glucose (UA) 500 A (Negative) mg/dL Urine Ketones Negative (Negative) Urine Blood Negative (Negative) Urine Nitrite Negative (Negative) Urine Bilirubin Negative (Negative) Urine Urobilinogen 1.0 A (0.2) mg/dL Ur Leukocyte Esterase Negative (Negative) U Hyaline Cast (Auto) NONE SEEN (0-2) /LPF Urine Microscopic RBC 0-2 (0-5) /HPF Urine Microscopic WBC 0-2 (0-5) /HPF Ur Epithelial Cells None Seen (None Seen) /HPF Urine Bacteria None Seen (None Seen) /HPF Urine Culture Reflexed NO (NO) 06/30/23 06/30/23 06/30/23 Range/Units 16:50 18:30 21:21 WBC (4.0-10.5) x10^3/uL RBC (4.1-5.6) x10^6/uL Hgb (12.5-18.0) g/dL Hct (42-50) % MCV (78-100) fL MCH (26-32) pg MCHC (32-36) g/dL RDW (11.5-14.0) % Plt Count (150-450) x10^3/uL MPV (7.5-11.0) fL Sodium (135-145) mmol/L Potassium (3.5-5.1) mmol/L Chloride (98-107) mmol/L Carbon Dioxide (22-30) mmol/L Anion Gap (5-15) MEQ/L BUN (9-20) mg/dL Creatinine (0.66-1.25) mg/dL Estimated GFR ML/MIN Glucose (74-106) mg/dL POC Glucometer 229 H 285 H (74 to 106) mg/dL Calcium (8.4-10.2) mg/dL Total Bilirubin (0.2-1.3) mg/dL AST (17-59) U/L ALT (0-50) U/L Alkaline Phosphatase (38-126) U/L Troponin I < 0.012 (0.000-0.034) ng/mL Serum Total Protein (6.3-8.2) g/dL Albumin (3.5-5.0) g/dL Triglycerides (30-150) mg/dL Cholesterol (50-200) mg/dL LDL Cholesterol HDL Cholesterol (40-60) mg/dL Heart Disease Risk Ratio TSH 3rd Generation (0.47-4.68) mIU/L Urine Color (Yellow) Urine Appearance (Clear) Urine pH (4.6-8.0) Ur Specific Barry (1.005-1.030) Urine Protein (Negative) Urine Glucose (UA) (Negative) mg/dL Urine Ketones (Negative) Urine Blood (Negative) Urine Nitrite (Negative) Urine Bilirubin (Negative) Urine Urobilinogen (0.2) mg/dL Ur Leukocyte Esterase (Negative) U Hyaline Cast (Auto) (0-2) /LPF Urine Microscopic RBC (0-5) /HPF Urine Microscopic WBC (0-5) /HPF Ur Epithelial Cells (None Seen) /HPF Urine Bacteria (None Seen) /HPF Urine Culture Reflexed (NO) 06/30/23 07/01/23 07/01/23 Range/Units 21:21 05:00 05:00 WBC 9.2 (4.0-10.5) x10^3/uL RBC 4.76 (4.1-5.6) x10^6/uL Hgb 13.4 (12.5-18.0) g/dL Hct 40.7 L (42-50) % MCV 85.5 (78-100) fL MCH 28.2 (26-32) pg MCHC 32.9 (32-36) g/dL RDW 12.6 (11.5-14.0) % Plt Count 268 (150-450) x10^3/uL MPV 8.5 (7.5-11.0) fL Sodium 137 (135-145) mmol/L Potassium 4.0 (3.5-5.1) mmol/L Chloride 107 (98-107) mmol/L Carbon Dioxide 23 (22-30) mmol/L Anion Gap 10.5 (5-15) MEQ/L BUN 16 (9-20) mg/dL Creatinine 0.83 (0.66-1.25) mg/dL Estimated GFR 94.7 ML/MIN Glucose 188 H (74-106) mg/dL POC Glucometer 285 H (74 to 106) mg/dL Calcium 8.4 (8.4-10.2) mg/dL Total Bilirubin 0.50 (0.2-1.3) mg/dL AST 21 (17-59) U/L ALT 19 (0-50) U/L Alkaline Phosphatase 78 (38-126) U/L Troponin I (0.000-0.034) ng/mL Serum Total Protein 6.5 (6.3-8.2) g/dL Albumin 3.5 (3.5-5.0) g/dL Triglycerides 114 (30-150) mg/dL Cholesterol 87 (50-200) mg/dL LDL Cholesterol Pending HDL Cholesterol 34 L (40-60) mg/dL Heart Disease Risk Ratio 3.0 TSH 3rd Generation (0.47-4.68) mIU/L Urine Color (Yellow) Urine Appearance (Clear) Urine pH (4.6-8.0) Ur Specific Barry (1.005-1.030) Urine Protein (Negative) Urine Glucose (UA) (Negative) mg/dL Urine Ketones (Negative) Urine Blood (Negative) Urine Nitrite (Negative) Urine Bilirubin (Negative) Urine Urobilinogen (0.2) mg/dL Ur Leukocyte Esterase (Negative) U Hyaline Cast (Auto) (0-2) /LPF Urine Microscopic RBC (0-5) /HPF Urine Microscopic WBC (0-5) /HPF Ur Epithelial Cells (None Seen) /HPF Urine Bacteria (None Seen) /HPF Urine Culture Reflexed (NO) 07/01/23 07/01/23 Range/Units 07:09 11:18 WBC (4.0-10.5) x10^3/uL RBC (4.1-5.6) x10^6/uL Hgb (12.5-18.0) g/dL Hct (42-50) % MCV (78-100) fL MCH (26-32) pg MCHC (32-36) g/dL RDW (11.5-14.0) % Plt Count (150-450) x10^3/uL MPV (7.5-11.0) fL Sodium (135-145) mmol/L Potassium (3.5-5.1) mmol/L Chloride (98-107) mmol/L Carbon Dioxide (22-30) mmol/L Anion Gap (5-15) MEQ/L BUN (9-20) mg/dL Creatinine (0.66-1.25) mg/dL Estimated GFR ML/MIN Glucose (74-106) mg/dL POC Glucometer 190 H 219 H (74 to 106) mg/dL Calcium (8.4-10.2) mg/dL Total Bilirubin (0.2-1.3) mg/dL AST (17-59) U/L ALT (0-50) U/L Alkaline Phosphatase (38-126) U/L Troponin I (0.000-0.034) ng/mL Serum Total Protein (6.3-8.2) g/dL Albumin (3.5-5.0) g/dL Triglycerides (30-150) mg/dL Cholesterol (50-200) mg/dL LDL Cholesterol HDL Cholesterol (40-60) mg/dL Heart Disease Risk Ratio TSH 3rd Generation (0.47-4.68) mIU/L Urine Color (Yellow) Urine Appearance (Clear) Urine pH (4.6-8.0) Ur Specific Barry (1.005-1.030) Urine Protein (Negative) Urine Glucose (UA) (Negative) mg/dL Urine Ketones (Negative) Urine Blood (Negative) Urine Nitrite (Negative) Urine Bilirubin (Negative) Urine Urobilinogen (0.2) mg/dL Ur Leukocyte Esterase (Negative) U Hyaline Cast (Auto) (0-2) /LPF Urine Microscopic RBC (0-5) /HPF Urine Microscopic WBC (0-5) /HPF Ur Epithelial Cells (None Seen) /HPF Urine Bacteria (None Seen) /HPF Urine Culture Reflexed (NO) Micro Results-Entire Visit: Accuchecks Date 07/01/23 Date 07/01/23 Date 06/30/23 Time 11:30 Time 07:22 Time 17:28 - Radiology Exams Ordered Rad Exams-Entire Visit: Radiology Procedures Category Date Time Status CAROTID BILATERAL [US] Routine Exams 07/01/23 08:00 Completed CERVICAL SPINE WO CONTRAST [CT] Stat Exams 06/30/23 09:49 Completed CHEST WITHOUT CONTRAST [CT] Stat Exams 06/30/23 09:49 Completed ECHO W/2D AND DOPPLER [US] Routine Exams 07/01/23 08:00 Taken HEAD WITHOUT CONTRAST [CT] Stat Exams 06/30/23 09:49 Completed KIDNEY [US] Urgent Exams 07/01/23 12:31 Completed KNEE (3 VIEWS) Stat Exams 06/30/23 11:28 Completed WRIST (MIN 3 VIEWS) Urgent Exams 06/30/23 17:09 Completed - Procedures and Test Procedures and Tests throughout Hospitalization: Therapy Orders & Screens 06/30/23 15:00 PT Eval & Treat ( Order) ONCE Reason for Eval:: syncope Diagnosis: Syncope and collapse EKG REPEAT IN AM Comment: Diagnosis: Syncope and collapse OT Eval and Treat ( Order) ONCE Comment: Physician Instructions: Reason For Exam: Diagnosis: Syncope and collapse 06/30/23 15:14 OT Screen per Nursing Assess ONCE Comment: Protocol Order Physician Instructions: Greater than 3 points order OT Admission Screening Reason For Exam: Triggered on Admission Diagnosis: Syncope and collapse Open Wound/Cellutlitis/Pressure Ulcers: No Acute Fx/ORIF/Change in wt bearing status: Yes Severe MUSCULOSKELETAL pain: No ADL Dysfunction: No Acute CVA w/Hemiparesis/Hemiplegia: No Decreased Functional Mobility/Strength: Yes Sprain/Strain: Yes Acute Post-op Mobility Dysfunction: No Total Points: 9 PT Screen per Nursing Assess ONCE Comment: Protocol Order Physician Instructions: Greater than 3 points order PT Admission Screenin Reason For Exam: Triggered on Admission Diagnosis: Syncope and collapse Open Wound/Cellutlitis/Pressure Ulcers: No Acute Fx/ORIF/Change in wt bearing status: Yes Severe MUSCULOSKELETAL pain: No ADL Dysfunction: No Acute CVA w/Hemiparesis/Hemiplegia: No Decreased Functional Mobility/Strength: Yes Sprain/Strain: Yes Acute Post-op Mobility Dysfunction: No Total Points: 9 Final Diagnosis/Problem List - Final Discharge Diagnosis/Problem (1) Syncope and collapse Current Visit: Yes Status: Acute Assessment & Plan: - head CT negative - Echo: EF 52%- will need cardiology OP f/u- denies CP - Carotid duplex-Impression: Minimal arteriosclerotic plaquing bilaterally as detailed. Velocity measurements and ratios negative for hemodynamically significant flow-limiting stenosis Code(s): R55 - SYNCOPE AND COLLAPSE (2) Diabetes mellitus Current Visit: Yes Status: Acute Assessment & Plan: -SSI -Hold metformin -ADA diet -A1c 7.04 03/18/23- uncontrolled - A1C analyzer down- unable to do A1C at this time. -accuchecks ACHS Code(s): E11.9 - TYPE 2 DIABETES MELLITUS WITHOUT COMPLICATIONS (3) Hyperlipidemia Current Visit: Yes Status: Acute Assessment & Plan: -continue statin Code(s): E78.5 - HYPERLIPIDEMIA, UNSPECIFIED (4) Hypertension Current Visit: Yes Status: Acute Assessment & Plan: -Stable, will hold HCTZ for now, continue other home meds Code(s): I10 - ESSENTIAL (PRIMARY) HYPERTENSION (5) Left knee pain Current Visit: Yes Status: Acute Assessment & Plan: - Left knee XR: 3 view left knee demonstrates osteopenia and total knee arthroplasty with intact prosthesis and tiny heterotopic ossifications. Minimal posterior vascular calcifications. No other bony, articular, or soft tissue abnormalities. - Did well with PT no need for further eval at this time. - tylenol for pain - [place] Code(s): M25.562 - PAIN IN LEFT KNEE (6) Cyst of right kidney Current Visit: Yes Status: Acute Assessment & Plan: - as seen on chest CT - US right kidney 06/30 Both kidneys are normal reniform shape and demonstrates normal color perfusion. Right kidney measures 11.6 x 6.1 x 5.47 m and left measures 10.2 x 5.7 x 5.8 cm. Right mid kidney demonstrates 1.8 x 1.9 x 1.9 cm exophytic cyst. No other focal solid/cystic renal mass or hydronephrosis. Corticomedullary differentiation preserved. Normally distended urinary bladder is grossly unremarkable. Normal left ureteral jet. Right ureteral jet not seen within the allotted exam time. Prevoid bladder volume is 131 cc. Postvoid is 43 cc. Impression: Right renal cyst corresponding to CT finding. Urinary bladder postvoid residual. Remaining renal sonogram is negative. - OP f/u appointment made with urology Code(s): N28.1 - CYST OF KIDNEY, ACQUIRED - Discharge Discharge Date: 07/01/23 Disposition: Home, Self-Care Condition: Stable Prescriptions: Continue Zinc Gluconate [Zinc] 1 tab PO DAILY hydroCHLOROthiazide [Hydrochlorothiazide] 1 tab PO DAILY Tamsulosin HCl 0.4 mg [Flomax 0.4 MG] 1 tab PO HS Metformin HCl 500 mg [Glucophage 500 MG] 2 tab PO HS Rosuvastatin Calcium 1 tab PO HS Ramipril [Altace] 1 tab PO BID Cholecalciferol (Vitamin D3) [Vitamin D3] 1 tab PO DAILY Amlodipine Besylate 1 tab PO DAILY Metoprolol Succinate [Toprol Xl] 1 tab PO DAILY Follow up with: JACOB SANCHEZ [COURTESY STAFF] - 10/02/23 2:15 pm ALDO JEAN FNP [ALLIED HEALTH PROFESSION STAFF] - 07/05/23 10:00 am JEREMIAH TOMLIN NP [NON-STAFF PHY W/O PRIVILEGES] - 07/04/23 1:00 pm
== END 2023-07-01 15:36 | disposition home or self-care (01) ==
LOC: ED 09:32 → MED SURG 14:16
PROVIDERS: ADMIT Internal Medicine; ATTEND Internal Medicine
DX: R55 Syncope and collapse (principal); E11.9 Type 2 diabetes mellitus without complications; E78.5 Hyperlipidemia, unspecified; I10 Essential (primary) hypertension; M25.562 Pain in left knee; N28.1 Cyst of kidney, acquired; F41.9 Anxiety disorder, unspecified; Z79.899 Other long term (current) drug therapy; Z20.828 Contact with and (suspected) exposure to other viral communicable diseases; Z85.46 Personal history of malignant neoplasm of prostate
CPT/HCPCS: 36000; 36415; 70450; 71250; 72125; 73110; 73562; 76770; 80053; 80061; 81001; 82550; 82947; 83036; 83721; 83880; 84443; 84484; 85025; 85027; 93005; 93041; 93268; 93306; 93880; 94762; 96374; 97162; 99285; G0378; Q3014; J1817; J2060; A9270-GY

== ENCOUNTER 2023-10-02 06:46 | Day surgery (SDC) | payer MEDICARE ==
[2023-10-02] MEDS ORDERED: BUPIVACAINE 0.5% VIAL IJ ONE (06:47)
[2023-10-02] MEDS ORDERED: Decadron 4 MG INJ IV ONE (06:47)
[2023-10-02] MEDS ORDERED: DIPRIVAN 200 MG/20 ML IV ONE (08:27)
[2023-10-02] MEDS ORDERED: Lactated Ringers 1,000 ML IV ONE (08:51)
--- NOTE | 2023-10-02 09:43 | XRAY ---
Indication: Left C2-C4 MBB. Intraoperative fluoroscopy provided for 27 seconds. 3 digital spot image submitted for interpretation demonstrates posterior needle tips projecting over the expected left C2-C4 nerve roots. Correlate with intraoperative findings/report.
--- NOTE | 2023-10-02 13:24 | XRAY ---
27 seconds of fluoroscopy was used in surgery for a left C2-C4 MBB.
== END 2023-10-02 09:00 | disposition home or self-care (01) ==
LOC: SDC-PAIN 06:46
PROVIDERS: ATTEND Psychiatry & Neurology Pain Medicine
DX: M47.812 Spondylosis without myelopathy or radiculopathy, cervical region (principal); E11.9 Type 2 diabetes mellitus without complications
CPT/HCPCS: 64490; 64491; 72040; 77002; 82947; J1100; J2704

== ENCOUNTER 2023-10-23 06:44 | Day surgery (SDC) | payer MEDICARE ==
[2023-10-23] MEDS ORDERED: BUPIVACAINE 0.5% VIAL IJ ONE (06:45)
[2023-10-23] MEDS ORDERED: Decadron 4 MG INJ IV ONE (06:45)
[2023-10-23] MEDS ORDERED: LIDOCAINE HCL 1% 50 MG/5 ML VL PF IJ ONE (06:45)
[2023-10-23] MEDS ORDERED: DIPRIVAN 200 MG/20 ML IV ONE (08:24)
[2023-10-23] MEDS ORDERED: Lactated Ringers 1,000 ML IV ONE (08:29)
--- NOTE | 2023-10-23 10:22 | XRAY ---
Indication: Left C2-C4 RFA. Intraoperative fluoroscopy provided for 31 seconds. 3 digital spot images submitted for interpretation demonstrates posterior needle tips projecting over the expected left C2-C4 nerve roots. Correlate with intraoperative findings/report.
--- NOTE | 2023-10-23 10:35 | XRAY ---
31 seconds of fluoroscopy was used in surgery for a left C2-C4 RFA.
== END 2023-10-23 09:00 | disposition home or self-care (01) ==
LOC: SDC-PAIN 06:44
PROVIDERS: ATTEND Psychiatry & Neurology Pain Medicine
DX: M47.812 Spondylosis without myelopathy or radiculopathy, cervical region (principal); E11.9 Type 2 diabetes mellitus without complications
CPT/HCPCS: 64633; 64634; 72040; 77002; 82947; J1100; J2001; J2704

== ENCOUNTER 2024-12-24 06:19 | Emergency (ER) | payer MEDICARE ==
[2024-12-24 06:24] VITALS: TEMP 97.4
--- NOTE | 2024-12-24 06:39 | ERPHSYRPT ---
<HEIDY NICHOLE - Last Filed: 12/24/24 06:50> - History of Present Illness Time Seen by Provider: 12/24/24 06:20 Historian: patient, family Exam Limitations: no limitations Patient Subjective Stated Complaint: chest pain Triage Nursing Assessment: Pt ambulated into ER without diff, spouse at bedside. Pt c/o midsternal chest pain that began around 0230 this morning that woke him up from sleep. Pt describes the pain as "sharp". Pt also had this same chest pain 2 days ago that lasted for several hours but finally went away. Lungs clear, heart tones reg, no edema noted. Physician History: This is a 69-year-old white male patient who arrives via private vehicle accompanied by his spouse and is a patient of Dr. Guzman. Patient is a piece, has history of diabetes, hyperlipidemia, hypertension and prostate issues. He has never been diagnosed with coronary artery disease. He states that on Saturday, prior to this evaluation he had similar send to the of substernal, central, sharp nonradiating chest pain. Eventually it went away and returned at 230 this morning. It was significant enough to wake him up and has been persistent. He did not take any aspirin prior to arrival. Timing/Duration: other (2:30 in the morning today) Activities at Onset: sleep Quality: sharpness, stabbing Location: substernal, central Chest Pain Radiation: no radiation Severity of Pain-Max: moderate Severity of Pain-Current: moderate Modifying Factors: Improves With: nothing Associated Symptoms: nausea, No shortness of breath Prior Chest Pain/Cardiac Workup: no prior chest pain, no prior cardiac workup Nitro Today/Relief: no nitro taken today Aspirin Treatment Today: 81 mg x 4, provided by ED Allergies/Adverse Reactions: No Known Drug Allergies Allergy (Unverified 12/24/24 06:36) Home Medications: Amlodipine Besylate 1 tab PO DAILY 06/30/23 [History] Cholecalciferol (Vitamin D3) [Vitamin D3] 1 tab PO DAILY 06/30/23 [History] Metformin HCl 500 mg [Glucophage 500 MG] 2 tab PO HS 06/30/23 [History] Metoprolol Succinate [Toprol Xl] 1 tab PO DAILY 06/30/23 [History] Rosuvastatin Calcium 1 tab PO HS 06/30/23 [History] Zinc Gluconate [Zinc] 1 tab PO DAILY 06/30/23 [History] hydroCHLOROthiazide [Hydrochlorothiazide] 1 tab PO DAILY 06/30/23 [History] ramipriL [Altace] 1 tab PO BID 06/30/23 [History] Meclizine HCl 25 mg [Antivert 25 mg] 1 tab PO TID PRN PRN 12/24/24 [History] Metformin HCl 500 mg [Glucophage 500 MG] 1 tab PO DAILY 12/24/24 [History] Multivit-Minerals/Folic Acid [Multi Vitamin Jelly] 1 tab PO DAILY 12/24/24 [History] Hx Tetanus, Diphtheria Vaccination/Date Given: (unsure) Hx Influenza Vaccination/Date Given: Yes Hx Pneumococcal Vaccination/Date Given: No Travel Risk - International Travel Have you traveled outside of the country in past 3 weeks: No - Emerging Infectious Disease Are you exhibiting symptoms associated with any current EIDs: No - Review of Systems Constitutional: No Symptoms Eyes: No Symptoms Ears, Nose, & Throat: No Symptoms Respiratory: No Symptoms Cardiac: Chest Pain Abdominal/Gastrointestinal: No Symptoms Genitourinary Symptoms: No Symptoms Musculoskeletal: No Symptoms Skin: No Symptoms Neurological: No Symptoms Psychological: No Symptoms Endocrine: No Symptoms Hematologic/Lymphatic: No Symptoms Immunological/Allergic: No Symptoms All Other Systems: Reviewed and Negative - Past Medical History Pertinent Past Medical History: Yes Neurological History: Other Cardiac History: Angina, High Cholesterol, Hypertension Respiratory History: No Pertinent History Endocrine Medical History: Diabetes Type II Musculoskeletal History: No Pertinent History GI Medical History: No Pertinent History History: No Pertinent History Psycho-Social History: Anxiety Male Reproductive Disorders: No Pertinent History Other Medical History: Headaches at base of head into neck (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 prostate problems - Social History Smoking Status: Never smoker Exposure to second hand smoke: No Drug Use: none - Social Determinants of Health Will the patient participate in the screening: Yes Do you worry about a steady place to live?: No Do you have any problems with any of the following?: No known problems In the past 12 months,have you had to go without utilities?: No Transportation Issues: No Has anyone in your support network made you feel unsafe?: No Have you or anyone in your house had to go w/o enough food: No - Physical Exam General Appearance: mild distress, alert Eye Exam: PERRL/EOMI, eyes nml inspection Ears, Nose, Throat Exam: normal ENT inspection, moist mucous membranes Neck Exam: normal inspection, non-tender, supple, full range of motion Respiratory Exam: normal breath sounds, chest tenderness, lungs clear, airway intact, No respiratory distress Cardiovascular Exam: regular rate/rhythm, normal heart sounds, normal peripheral pulses Gastrointestinal/Abdomen Exam: soft, normal bowel sounds, No tenderness Rectal Exam: not done Back Exam: normal inspection, normal range of motion, No CVA tenderness, No vertebral tenderness Extremity Exam: normal inspection, normal range of motion, pelvis stable Neurologic Exam: alert, oriented x 3, cooperative, job training specialist II-XII nml as tested, nml cerebellar function, nml station & gait, sensation nml Skin Exam: normal color, warm, dry Lymphatic Exam: No adenopathy SpO2 Interpretation: normal SpO2: 96 O2 Delivery: Room Air - Course Nursing assessment & vital signs reviewed: Yes EKG Interpreted by Me: RATE (76), Sinus Rhythm, NORMAL AXIS, NORMAL INTERVALS, NORMAL QRS, Other (QTc is 456. No acute ischemic changes on today's twelve-lead EKG) - Progress Progress Note: 12/24/24 06:58 My medical decision making and the assignment of moderate complexity of this patient's medical issue today is based on review of the patient's past medical history, reviewed patient's medication list, reviewed patient drug allergy list, history of present illness and physical findings on examination. The workup in this patient includes placement of intravenous line, twelve-lead EKG, provide the patient with 4 baby aspirin, CBC, CMP, magnesium level, D-dimer, PT/INR and troponin level Differential diagnosis includes but is not limited to myocardial infarction, electrolyte abnormalities, pulmonary embolus, arrhythmia I am transferring care to Dr. Moreno at shift change. He will follow-up with pending lab and workup results and make final disposition. Medical Desision Making - Independent Historian Additional History obtained from: Spouse - Departure Departure Disposition: Home Clinical Impression: Chest pain Condition: Good Critical Care Time: No Referrals: HANNA GUZMAN DO [Primary Care Provider, [facility]] - Follow up/PCP as directed Instructions: Chest Pain (DC) Additional Instructions: Return for any recurrent pain or concerns Care was discussed with your PCP office. They can arrange an outpatient stress test. They are going to follow-up your white blood cell count. Rest today. <JAMSHID MORENO - Last Filed: 12/24/24 10:18> - Nursing Vital Signs Nursing Vital Signs: Initial Vital Signs Pulse Rate 74 12/24/24 06:19 Respiratory Rate 14 12/24/24 06:19 Blood Pressure 137/55 12/24/24 06:19 O2 Sat by Pulse Oximetry 94 L 12/24/24 06:19 Pain Scale Pain Intensity 5 Ordered Tests: Active Orders 24 hr Category Date Time Status Shopper'S Aide STAT Care 12/24/24 06:40 Active EKG-ER Only STAT Care 12/24/24 06:40 Active EKG-ER Only STAT Care 12/24/24 07:37 Completed IV Insertion STAT Care 12/24/24 06:40 Active Pulse Oximetry (ED) STAT Care 12/24/24 06:40 Active CHEST 1 VIEW (PORTABLE) Stat Exams 12/24/24 06:39 Completed CBC W DIFF Stat Lab 12/24/24 06:30 Completed CMP Stat Lab 12/24/24 06:30 Completed D-DIMER QUANTITATIVE Stat Lab 12/24/24 06:30 Completed MAGNESIUM Stat Lab 12/24/24 06:30 Completed NT PRO BNPII Stat Lab 12/24/24 06:30 Completed PROTIME WITH INR Stat Lab 12/24/24 06:30 Completed TROPONIN Q4H Lab 12/24/24 06:30 Completed TROPONIN Q4H Lab 12/24/24 09:10 Completed TROPONIN Q4H Lab 12/24/24 14:45 Ordered Medication Summary Discontinued Medications Generic Name Dose Route Start Last Admin Trade Name Freq PRN Reason Stop Dose Admin Aspirin 324 mg 12/24/24 06:40 12/24/24 06:50 Aspirin 81 Mg Tab.Chew PO 12/24/24 06:41 324 mg STAT ONE Administration Morphine Sulfate 4 mg 12/24/24 07:18 12/24/24 07:27 Morphine Sulfate 4 Mg/Ml Injection IV 12/24/24 07:19 4 mg STAT ONE Administration Ondansetron HCl 4 mg 12/24/24 06:40 12/24/24 06:50 Ondansetron Hcl 4 Mg/2 Ml Vial IV 12/24/24 06:41 4 mg STAT ONE Administration Lab/Rad Data: Laboratory Result Diagrams 12/24/24 06:30 12/24/24 06:30 Laboratory Results 12/24/24 12/24/24 12/24/24 Range/Units 09:10 06:30 06:30 WBC (4.23-9.07) x10^3/uL RBC (4.63-6.08) x10^6/uL Hgb (13.7-17.5) g/dL Hct (40.1-51.0) % MCV (79.0-92.2) fL MCH (25.7-32.2) pg MCHC (32.3-36.5) g/dL RDW (11.6-14.4) % Plt Count (163-337) x10^3/uL MPV (9.4-12.4) fL Gran % (34.0-67.9) % Immature Gran % (Auto) (0.001-0.429) % Nucleat RBC Rel Count (0.00-0.2) % Eos # (Auto) (0.04-0.54) x10^3/uL Immature Gran # (Auto) (0.001-0.031) x10^3u/L Absolute Lymphs (auto) (1.32-3.57) x10^3/uL Absolute Monos (auto) (0.30-0.82) x10^3/uL Absolute Nucleated RBC (0.00-0.012) x10^3u/L Lymphocytes % (21.8-53.1) % Monocytes % (5.3-12.2) % Eosinophils % (0.8-7.0) % Basophils % (0.2-1.2) % Absolute Granulocytes (1.78-5.38) x10^3/uL Basophils # (0.01-0.08) x10^3/uL PT 9.7 (9.4-12.5) SECONDS INR 0.88 (0.8-3.0) D-Dimer 0.33 (0.0-0.50) mg/L Sodium (135-145) mmol/L Potassium (3.5-5.1) mmol/L Chloride (98-107) mmol/L Carbon Dioxide (22-30) mmol/L Anion Gap (5-15) MEQ/L BUN (9-20) mg/dL Creatinine (0.66-1.25) mg/dL Estimated GFR ML/MIN Glucose (74-106) mg/dL Calcium (8.4-10.2) mg/dL Magnesium (1.6-2.3) mg/dL Total Bilirubin (0.2-1.3) mg/dL AST (17-59) U/L ALT (0-50) U/L Alkaline Phosphatase (38-126) U/L Troponin I < 0.012 < 0.012 (0.000-0.033) ng/mL NT-Pro-B Natriuret Pep (<300) pg/mL Serum Total Protein (6.3-8.2) g/dL Albumin (3.5-5.0) g/dL 12/24/24 12/24/24 Range/Units 06:30 06:30 WBC 15.8 H (4.23-9.07) x10^3/uL RBC 4.65 (4.63-6.08) x10^6/uL Hgb 13.3 L (13.7-17.5) g/dL Hct 40.1 (40.1-51.0) % MCV 86.2 (79.0-92.2) fL MCH 28.6 (25.7-32.2) pg MCHC 33.2 (32.3-36.5) g/dL RDW 13.2 (11.6-14.4) % Plt Count 277 (163-337) x10^3/uL MPV 8.7 L (9.4-12.4) fL Gran % 57.8 (34.0-67.9) % Immature Gran % (Auto) 0.4 (0.001-0.429) % Nucleat RBC Rel Count 0.0 (0.00-0.2) % Eos # (Auto) 0.59 H (0.04-0.54) x10^3/uL Immature Gran # (Auto) 0.06 H (0.001-0.031) x10^3u/L Absolute Lymphs (auto) 4.66 H (1.32-3.57) x10^3/uL Absolute Monos (auto) 1.28 H (0.30-0.82) x10^3/uL Absolute Nucleated RBC 0.00 (0.00-0.012) x10^3u/L Lymphocytes % 29.4 (21.8-53.1) % Monocytes % 8.1 (5.3-12.2) % Eosinophils % 3.7 (0.8-7.0) % Basophils % 0.6 (0.2-1.2) % Absolute Granulocytes 9.14 H (1.78-5.38) x10^3/uL Basophils # 0.10 H (0.01-0.08) x10^3/uL PT (9.4-12.5) SECONDS INR (0.8-3.0) D-Dimer (0.0-0.50) mg/L Sodium 138 (135-145) mmol/L Potassium 4.0 (3.5-5.1) mmol/L Chloride 105 (98-107) mmol/L Carbon Dioxide 24 (22-30) mmol/L Anion Gap 13.7 (5-15) MEQ/L BUN 20 (9-20) mg/dL Creatinine 0.84 (0.66-1.25) mg/dL Estimated GFR 93.8 ML/MIN Glucose 184 H (74-106) mg/dL Calcium 9.3 (8.4-10.2) mg/dL Magnesium 1.7 (1.6-2.3) mg/dL Total Bilirubin 0.40 (0.2-1.3) mg/dL AST 23 (17-59) U/L ALT 17 (0-50) U/L Alkaline Phosphatase 81 (38-126) U/L Troponin I (0.000-0.033) ng/mL NT-Pro-B Natriuret Pep 144 (<300) pg/mL Serum Total Protein 6.7 (6.3-8.2) g/dL Albumin 4.2 (3.5-5.0) g/dL - Progress Progress: improved Air Movement: good Progress Note: 12/24/24 08:12 Saw the patient in follow-up.His initial EKG was unremarkable.He is pain-free after the morphine from the prior provider. Cardiac workup and D-dimer were unremarkable. An elevated white blood cell count of 15,000. He has had no cough or fever. As he is asymptomatic to get a second EKG that was also normal sinus rhythm with no ST or T wave abnormality. His chest x-ray appears to show some old scarring. He has had no cough or symptoms of infection.Plan to observe him for repeat troponin. If he remains asymptomatic and this is normal we will refer for outpatient workup. 12/24/24 08:51 Procedures: [id number] RAD/CHEST 1 VIEW (PORTABLE) CLINICAL HISTORY: Chest pain COMPARISON: chest X-ray. TECHNIQUE: An X-ray image of the chest was obtained in the AP projection. FINDINGS: Pulmonary Parenchyma: There is a stable appearance of the right basal atelectatic band. This is an expiratory study, causing crowding of the bronchovascular markings. There is no evidence of consolidation, collapse, or focal opacities. No pulmonary nodules are identified. There is no evidence of pleural effusion or pleural thickening. Heart and Mediastinum: The heart size and shape are normal. There is no mediastinal widening or masses. No hilar or mediastinal lymphadenopathy is seen. Bony Thorax: There is mild thoracic scoliosis convex to the right side, which could be positional. The bony thorax appears intact without fractures or deformities. Soft Tissues: The soft tissues overlying the chest wall are unremarkable. IMPRESSION: There is no evidence of consolidation, collapse, or focal opacities. Chest x-ray was unremarkable. Remains pain-free. No etiology for white count. Second troponin was obtained which showed 12/24/24 10:17 Patient was reexamined. The second troponin was normal. He has been asymptomatic for significant period of time. He has not had exertional symptoms. His states she believes it is related to fatty foods but patient does not have any abdominal pain. He is comfortable with outpatient discharge. Okay I will Dr. Guzman office and she was out for discussed with provider taking calls that she is can arrange a stress test for him and a follow-up of his elevated white count. Completely asymptomatic and he agreed to return for any recurrent symptoms or concerns Discussed with Dr.: Downey (Dr. Guzman out. Discussed with provider in office. Arranging stress test and follow-upWhite count) - Departure Departure Disposition: Home Critical Care Time: No
[2024-12-24] MEDS ORDERED: Zofran 4 MG/2 ML VIAL ONE (06:47)
[2024-12-24] MEDS ORDERED: BABY ASPIRIN 81 MG CHEW ONE (06:48)
[2024-12-24] MEDS: Zofran 4 MG/2 ML VIAL IV ONE (06:50)
[2024-12-24] MEDS: BABY ASPIRIN 81 MG CHEW PO ONE (06:50)
[2024-12-24 06:56] LABS: BASOPHIL % 0.6 % (0.2-1.2); Basophil (Absolute #) 0.10 x10^3/uL (0.01-0.08); Eosinophil (Absolute #) 0.59 x10^3/uL (0.04-0.54); Hematocrit 40.1 % (40.1-51.0); Hemoglobin 13.3 g/dL (13.7-17.5); IMMATURE GRAN # 0.06 x10^3u/L (0.001-0.031); IMMATURE GRAN % 0.4 % (0.001-0.429); Lymphocyte (Absolute #) 4.66 x10^3/uL (1.32-3.57); Mean Corpuscular Hemoglobin 28.6 pg (25.7-32.2); Mean Corpuscular Hgb Concent. 33.2 g/dL (32.3-36.5); Monocyte (Absolute #) 1.28 x10^3/uL (0.30-0.82); NUCLEATED RBC # 0.00 x10^3u/L (0.00-0.012); NUCLEATED RBC % 0.0 % (0.00-0.2); Platelet Count 277 x10^3/uL (163-337); Red Blood Count 4.65 x10^6/uL (4.63-6.08); White Blood Count 15.8 x10^3/uL (4.23-9.07)
[2024-12-24 07:12] LABS: INR 0.88 (0.8-3.0); PROTIME 9.7 SECONDS (9.4-12.5)
[2024-12-24 07:21] LABS: Calcium 9.3 mg/dL (8.4-10.2); Carbon Dioxide 24.0 mmol/L (22-30); Creatinine 1 0.84 mg/dL (0.66-1.25); EST GLOMERULAR FILTRATION RATE 93.8 ML/MIN; Glucose 184.0 mg/dL (74-106); NT PRO BNPII 144.0 pg/mL (<300); Potassium 4.0 mmol/L (3.5-5.1); SGOT/AST 23.0 U/L (17-59); SGPT/ALT 17.0 U/L (0-50); Total Protein 6.7 g/dL (6.3-8.2)
[2024-12-24] MEDS ORDERED: MORPHINE SULFATE 4 MG INJ ONE (07:26)
[2024-12-24] MEDS: MORPHINE SULFATE 4 MG INJ IV ONE (07:27)
--- NOTE | 2024-12-24 08:46 | XRAY ---
CLINICAL HISTORY: Chest pain COMPARISON: chest X-ray. TECHNIQUE: An X-ray image of the chest was obtained in the AP projection. FINDINGS: Pulmonary Parenchyma: There is a stable appearance of the right basal atelectatic band. This is an expiratory study, causing crowding of the bronchovascular markings. There is no evidence of consolidation, collapse, or focal opacities. No pulmonary nodules are identified. There is no evidence of pleural effusion or pleural thickening. Heart and Mediastinum: The heart size and shape are normal. There is no mediastinal widening or masses. No hilar or mediastinal lymphadenopathy is seen. Bony Thorax: There is mild thoracic scoliosis convex to the right side, which could be positional. The bony thorax appears intact without fractures or deformities. Soft Tissues: The soft tissues overlying the chest wall are unremarkable. IMPRESSION: There is no evidence of consolidation, collapse, or focal opacities. Electronically Signed by: Nikolay Burton MD. (12/24/2024 08:43:55 EDT)
[2024-12-24 10:18] VITALS: BP 107/61; PULSE 71; RESP 19; O2SAT 95
== END 2024-12-24 10:27 | disposition home or self-care (01) ==
LOC: ED 06:19
DX: R07.9 Chest pain, unspecified (principal); E11.9 Type 2 diabetes mellitus without complications; I10 Essential (primary) hypertension; Z79.84 Long term (current) use of oral hypoglycemic drugs; Z79.899 Other long term (current) drug therapy